=== PATIENT | female | born 1980 | race African-American/Black ===

== ENCOUNTER 2018-08-29 10:17 | Emergency (ER) | payer OTHER ==
[~2018-08-29] VITALS: Ht 167.6 cm; Wt 70.0 kg
[2018-08-29 10:58] LABS: BASOPHILS % 2.1 % (0.0-2.0); EOSINOPHILS % 0.3 % (0.0-5.0); HEMATOCRIT. 39.4 % (36.0-48.0); HEMOGLOBIN. 12.8 g/dL (12.0-16.0); LYMPHOCYTES % 37.1 % (20.0-50.0); MEAN PLATELET VOLUME 9.4 fl (7.4-10.4); MONOCYTES % 5.4 % (2.0-8.0); NEUTROPHILS % 55.1 % (40.0-76.0); PLATELET 244 x1000/uL (130-400); RED BLOOD CELL COUNT 4.74 mill/uL (4.2-5.4); RED CELL DISTRIBUTION WIDTH 14.2 % (11.6-14.6)
[2018-08-29 11:02] LABS: CHLORIDE 98 mEq/L (98-107)
[2018-08-29 12:22] VITALS: BP 135/75
== END 2018-08-29 12:26 | disposition home or self-care (01) ==
LOC: ER 10:30
DX: R07.9 Chest pain, unspecified (principal)
CPT/HCPCS: 36415; 71045; 81025; 93005; 99284